=== PATIENT | male | born 1945 | race Caucasian/White ===

== ENCOUNTER → 2016-11-11 | Outpatient (CLI) | payer MEDICARE, OTHER | END | disposition home or self-care (01) | LOC: GMAL 10:29 | PROVIDERS: ATTEND Family Medicine | DX: Z12.5 Encounter for screening for malignant neoplasm of prostate (principal); D51.3 Other dietary vitamin B12 deficiency anemia | CPT/HCPCS: 82607; G0103 ==

== ENCOUNTER → 2017-06-07 | Outpatient (CLI) | payer MEDICARE, OTHER | END | disposition home or self-care (01) | LOC: GMAL 11:22 | PROVIDERS: ATTEND Family Medicine | DX: D51.3 Other dietary vitamin B12 deficiency anemia (principal); E55.9 Vitamin D deficiency, unspecified ==

== ENCOUNTER → 2017-06-09 | Outpatient (CLI) | payer MEDICARE, OTHER | END | disposition home or self-care (01) | LOC: GMAL 10:21 | PROVIDERS: ATTEND Family Medicine | DX: D53.9 Nutritional anemia, unspecified (principal) ==

== ENCOUNTER → 2017-07-29 | Outpatient (CLI) | payer MEDICARE, BC | END | disposition home or self-care (01) | LOC: GMAL 11:53 | PROVIDERS: ATTEND Family Medicine | DX: D53.9 Nutritional anemia, unspecified (principal) ==

== ENCOUNTER → 2018-04-13 | Outpatient (CLI) | payer MEDICARE, BC ==
--- NOTE | 2018-04-14 06:37 | CT ---
Procedure: CT NECK ANGIOGRAPHY WITH IV CONTRAST Exam Date: 04/14/2018 Ordering Provider: MARVIN FALCON Clinical Indication: Carotid STENOSIS Comparison: None Technique: Using a helical scanner, sequential axial imaging of the neck was obtained after the administration of intravenous contrast medium. Coronal and sagittal MIPS of the arteries of the neck were obtained. This exam was performed according to our departmental dose optimization program which includes use of automated exposure control, adjustment of the mA and/or kV according to patient size and/or use of iterative reconstruction technique. Findings: There are scattered atherosclerotic plaque throughout the arteries of the neck. The innominate artery is patent. The visualized subclavian arteries are patent. The right common carotid artery is patent. There is approximately 70% stenosis of the proximal right internal carotid artery. Approximately 50% stenosis of the mid left common carotid artery. The left internal carotid artery is patent. The basilar artery is patent. The vertebral arteries are patent. IMPRESSION: 1. There is approximately 70% stenosis of the proximal right internal carotid artery. 2. Approximately 50% stenosis of the mid left common carotid artery. Electronically signed by: Jayesh Gomez MD 04/14/2018 6:36 AM CDT
== END ==
LOC: CT 13:00
PROVIDERS: ATTEND Family Medicine
DX: I65.23 Occlusion and stenosis of bilateral carotid arteries (principal)

== ENCOUNTER → 2019-03-07 | Outpatient (CLI) | payer MEDICARE, BC | LOC: GMAL 15:00 | PROVIDERS: ATTEND Family Medicine | DX: D51.3 Other dietary vitamin B12 deficiency anemia (principal); R53.83 Other fatigue; E55.9 Vitamin D deficiency, unspecified; I10 Essential (primary) hypertension; E11.9 Type 2 diabetes mellitus without complications; E78.2 Mixed hyperlipidemia; Z85.46 Personal history of malignant neoplasm of prostate ==

== ENCOUNTER → 2019-05-31 | Outpatient (CLI) | payer MEDICARE, BC | END | disposition home or self-care (01) | LOC: GMAL 10:25 | PROVIDERS: ATTEND Family Medicine | DX: R53.83 Other fatigue (principal); E83.42 Hypomagnesemia ==

== ENCOUNTER → 2019-07-31 | Outpatient (CLI) | payer MEDICARE, BC | LOC: GMAL 10:41 | PROVIDERS: ATTEND Family Medicine | DX: D50.8 Other iron deficiency anemias (principal); R53.83 Other fatigue; I10 Essential (primary) hypertension; I50.89 Other heart failure; E78.2 Mixed hyperlipidemia ==